=== PATIENT | female | born 1995 | race American Indian/Alaskan Native ===

== ENCOUNTER 2019-12-18 19:49 | Inpatient (IN) | payer OTHER, MEDICAID ==
[2019-12-18 20:36] LABS: Hematocrit 35.9 % (30.3-42.9); Hemoglobin 12.1 gm/dl (10.1-14.3); Mean Corpuscular HGB Conc 34 % (30-34); Mean Corpuscular Volume 90 fl (79-97); Platelet Count 207 K/mm3 (140-440); Red Cell Distribution Width 14.8 % (13.2-15.2)
[2019-12-18] MEDS ORDERED: LIDOCAINE (2%) 20 MG/1 ML VIAL 20 ML MDV INFILTRATI ONE (21:23)
[2019-12-18] MEDS ORDERED: BUTORPHANOL 2 MG/1 ML INJ IV PRN (21:23)
[2019-12-18] MEDS ORDERED: ONDANSETRON 4 MG/2 ML INJ IV PRN (21:23)
[2019-12-18] MEDS ORDERED: TERBUTALINE 1 MG/1 ML INJ SUB-Q PRN (21:23)
[2019-12-18] MEDS ORDERED: TERBUTALINE 1 MG/1 ML INJ IVP PRN (21:23)
[2019-12-18] MEDS ORDERED: NALOXONE 0.4 MG/1 ML INJ IV PRN (21:23)
[2019-12-18] MEDS ORDERED: MINERAL OIL 30 ML ORAL LIQD PO PRN (21:23)
[2019-12-18] MEDS ORDERED: ePHEDrine SULFATE 50 MG/1 ML INJ IV PRN (21:23)
[2019-12-18] MEDS ORDERED: fentaNYL 100 MCG/2 ML INJ IV PRN (21:23)
[2019-12-18] MEDS ORDERED: OXYTOCIN 20 UNIT/1000ML DRIP 20 UNITS/1,000 ML BAG IV SCH (22:00)
[2019-12-19] MEDS: OXYTOCIN DRIP 30 UNITS/500 ML BAG IV SCH ×7 (00:17→11:50)
[2019-12-19] MEDS: LACTATED RINGERS 1,000 ML IV SCH ×4 (00:17→15:04)
[2019-12-19] MEDS ORDERED: ZOLPIDEM 5 MG TAB PO PRN (00:25)
--- NOTE | 2019-12-19 08:18 | History and Physical Report ---
History of Present Illness Date of examination: 12/19/19 Date of admission: 12/18/19 21:20 Chief complaint: IOL recommneded by M History of present illness: This is a 24 yo at 39 weeks here forIOL. She is a patient of [facility] weeks. Hx of subchorionic bleeding and bleeding during . 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 HX of GBS neg. HX of EIF resolved on 11/25 PUI?: No Past History Past Medical History: no pertinent history Past Surgical History: other () Family/Genetic History: none Social history: no significant social history, single. denies: smoking, alcohol abuse, prescription drug abuse - Obstetrical History Expected Date of Delivery: 12/25/19 Actual Gestation: 39 Week(s) 1 Day(s) : 3 Para: 0 Hx # Term Pregnancies: 0 Number of Pregnancies: 0 Spontaneous Abortions: 0 Induced : 1 Number of Living Children: 0 Medications and Allergies Allergies Allergy/AdvReac Type Severity Reaction Status Date / Time No Known Allergies Allergy Verified 12/18/19 21:31 Home Medications Medication Instructions Recorded Confirmed Last Taken Type Butalb/Acetamin/Caff 50-325-40 1 each PO Q4H PRN 12/18/19 12/18/19 Unknown History [Fioricet 50-325-40] Ferrous Sulfate [Iron 325 MG] 325 mg PO DAILY 12/18/19 12/18/19 1 Day Ago Histo ry ~12/17/19 Pnv,Calcium 72/Iron,Carb/Folic 1 each PO DAILY 12/18/19 12/18/19 1 Day Ago Hist ory [ Plus Iron Tablet] ~12/17/19 valACYclovir [Valtrex] 500 mg PO ONCE 12/18/19 12/18/19 1 Day Ago History ~12/17/19 Active Meds: Active Medications Butorphanol Tartrate (Stadol) 2 mg IV Q2H PRN PRN Reason: Pain , Severe (7-10) Ephedrine Sulfate (Ephedrine Sulfate) 10 mg IV Q2M PRN PRN Reason: Hypotension Fentanyl (Sublimaze) 100 mcg IV Q2H PRN PRN Reason: Labor Pain Oxytocin/Sodium Chloride (Pitocin/Ns 20 Unit/1000ml Drip) 20 units in 1,000 mls @ 125 mls/hr IV DIRECT NADIA Oxytocin/Sodium Chloride (Pitocin/Ns 30 Unit/500ml) 30 units in 500 mls @ 1 mls/hr IV TITR NADIA; Protocol Last Admin: 12/19/19 07:58 Dose: 6 ml/hr, 6 mls/hr Documented by: Lactated Ringer's (Lactated Ringers) 1,000 mls @ 125 mls/hr IV DIRECT NADIA Last Admin: 12/19/19 07:41 Dose: 125 mls/hr Documented by: Mineral Oil (Mineral Oil) 30 ml PO QHS PRN PRN Reason: Constipation Naloxone HCl (Naloxone) 0.1 mg IV Q2MIN PRN PRN Reason: Res Rate </= 8 or 02 SAT < 92% Ondansetron HCl (Zofran) 4 mg IV Q8H PRN PRN Reason: Nausea And Vomiting Terbutaline Sulfate (Brethine) 0.25 mg SUB-Q ONCE PRN PRN Reason: Hyperstimulation/Hypertonicity Terbutaline Sulfate (Brethine) 0.25 mg IVP ONCE PRN PRN Reason: Hyperstimulation/Hypertonicity Valacyclovir HCl (Valtrex) 500 mg PO BID NADIA Zolpidem Tartrate (Ambien) 5 mg PO QHS PRN PRN Reason: Sleep Last Admin: 12/19/19 00:31 Dose: 5 mg Documented by: Review of Systems All systems: negative - Vital Signs Vital signs: Vital Signs Pulse BP 97 H 111/64 12/18/19 20:08 12/18/19 20:08 Temp Pulse Resp BP Pulse Ox 97.9 F 99 H 14 94/57 100 12/19/19 07:42 12/19/19 08:07 12/19/19 07:42 12/19/19 07:43 12/19/19 08:07 - Physical Exam Breasts: Positive: normal Cardiovascular: Regular rate, Normal S1 Lungs: Positive: Clear to auscultation, Normal air movement Abdomen: Positive: normal appearance, soft, normal bowel sounds. Negative: distention, tenderness, guarding Genitourinary (Female): Positive: normal external genitalia, normal perenium Vagina: Positive: normal moisture Uterus: Positive: normal size, normal contour Anus/Rectum: Positive: normal perianal skin Extremities: Positive: normal Deep Tendon Reflex Grade: Normal +2 - Obstetrical FHR: category 1 Cervical Dilatation: 2 Cervical Effacement Percentage: 70 station: -3 Uterine Contraction Pattern: Irregular Uterine Contraction Intensity: Mild Results Result Diagrams: 12/18/19 20:23 All other labs normal. Assessment and Plan A/P IUP 39 weeks hx of vaginal bleeding during recommended by [facility] to deliver at 39+ weeks. IOL with low dose pit GBS neg no need for IP abx expect vaginal delivery
[2019-12-19] MEDS ORDERED: valACYclovir 500 MG TAB PO SCH (10:00)
[2019-12-19] MEDS ORDERED: fentaNYL-BUPIV 2 MCG/ML-0.125% 200 MCG/100 ML BAG EPIDURAL ONE (13:51)
[2019-12-19] MEDS ORDERED: NALOXONE 2 MG/2 ML INJ IV PRN (14:25)
[2019-12-19] MEDS ORDERED: ePHEDrine SULFATE 50 MG/1 ML INJ IV PRN (14:25)
[2019-12-19] MEDS ORDERED: fentaNYL-BUPIV 2 MCG/ML-0.125% 200 MCG/100 ML BAG EPIDURAL SCH (15:00)
[2019-12-19] MEDS ORDERED: diphenhydrAMINE 25 MG CAP PO PRN (17:47)
[2019-12-19] MEDS ORDERED: ONDANSETRON 4 MG/2 ML INJ IV PRN (17:47)
[2019-12-19] MEDS ORDERED: PROMETHAZINE 25 MG TAB PO PRN (17:47)
[2019-12-19] MEDS ORDERED: MAGNESIUM HYDROXIDE (MOM) ORAL LIQD UDC PO PRN (17:47)
[2019-12-19] MEDS ORDERED: WITCH HAZEL/ GLYCERIN PAD TP PRN (17:47)
[2019-12-19] MEDS ORDERED: LANOLIN/ZINC/DIMETHICONE (LANSINOH) 7 GM TP PRN (17:47)
[2019-12-19] MEDS ORDERED: ACETAMINOPHEN 325 MG TAB PO PRN (17:47)
[2019-12-19] MEDS ORDERED: HYDROcodone/ACETAMINOPHEN 5-325 MG TAB PO PRN (17:47)
[2019-12-19] MEDS ORDERED: PROMETHAZINE 25 MG RECT SUPP PR PRN (17:47)
--- NOTE | 2019-12-19 17:47 | Procedure Note ---
OB Delivery Note - Delivery Date of Delivery: 12/19/19 Surgeon: SHEEBA KIRKPATRICK Estimated blood loss: 200cc - Vaginal Delivery presentation: vertex Delivery position: OA Intrapartum events: none Delivery induction: AROM Delivery augmentation: pitocin Delivery monitor: external FHT, external uterine Route of delivery: Delivery placenta: spontaneous Delivery cord: 3 umbilical vessels Episiotomy: none Delivery laceration: 1st degree Anesthesia: epidural Delivery comments: Patient progressed to complete complete +1 and post to deliver a live-born female with Apgars of 8 and 9 weight 2.95kg. After delivery of the head the shoulders delivered without difficulty. The cord was clamped and cut and was bulb suction. The infant was placed on the patient's abdomen. The placenta delivered spontaneously intact with a three-vessel cord. The patient sustained a right periurethral laceration left unrepaired. Estimated blood loss of 200 mL. - A at 1 minute: 8 at 5 minutes: 9 Infant Gender: Female (wt 2.95kg)
[2019-12-19] MEDS: IBUPROFEN 600 MG TAB PO SCH (22:07)
[2019-12-20] MEDS: IBUPROFEN 600 MG TAB PO SCH ×3 (04:20→17:53)
[2019-12-20 05:04] LABS: Hematocrit 31.1 % (30.3-42.9); Hemoglobin 10.4 gm/dl (10.1-14.3)
--- NOTE | 2019-12-20 08:32 | Progress Note ---
Assessment and Plan A/P PPD1 s/p routine PP care d/c home tomorrow stable CBC Subjective - Subjective Date of service: 12/20/19 Principal diagnosis: s/p Interval history: This is a 24 yo at 39 weeks here forIOL. She is a patient of [facility] weeks. Hx of subchorionic bleeding and bleeding during . 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 HX of GBS neg. HX of EIF resolved on 11/25 Patient reports: appetite normal, voiding normally, pain well controlled, flatus, ambulating normally [place]: doing well Objective - Vital Signs Latest vital signs: Vital Signs Temp Pulse Resp BP BP Pulse Ox 12/20/19 04:39 98.0 F 71 20 98/56 94 12/20/19 00:47 98.2 F 87 20 94/62 96 12/19/19 21:20 98.3 F 87 16 110/77 99 12/19/19 20:23 77 98 12/19/19 20:22 98.3 F 80 18 120/73 12/19/19 20:21 31 L 77 L 12/19/19 20:18 86 99 12/19/19 20:16 79 116/73 12/19/19 20:15 75 86 12/19/19 20:13 78 100 12/19/19 20:08 80 100 12/19/19 20:03 79 100 12/19/19 20:01 76 127/84 12/19/19 19:58 80 100 12/19/19 19:53 75 100 12/19/19 19:48 85 100 12/19/19 19:47 87 119/75 85 12/19/19 19:43 78 100 12/19/19 19:38 81 100 12/19/19 19:33 85 124/80 100 12/19/19 19:29 86 86 12/19/19 19:28 81 100 12/19/19 19:23 75 100 12/19/19 19:18 82 100 12/19/19 19:17 66 114/83 12/19/19 19:13 67 100 12/19/19 19:08 83 100 12/19/19 19:04 80 86 12/19/19 19:03 75 99 12/19/19 19:01 77 114/74 12/19/19 18:58 84 99 12/19/19 18:55 75 86 12/19/19 18:53 81 100 12/19/19 18:48 76 100 12/19/19 18:46 73 112/70 12/19/19 18:43 78 100 12/19/19 18:38 76 98 12/19/19 18:33 79 100 12/19/19 18:31 90 108/65 12/19/19 18:28 84 99 12/19/19 18:23 86 100 12/19/19 18:18 75 100 12/19/19 18:16 77 105/57 12/19/19 18:13 85 100 12/19/19 18:08 90 100 12/19/19 18:03 83 99 12/19/19 18:02 85 95/55 12/19/19 17:58 85 100 12/19/19 17:53 76 100 12/19/19 17:48 82 100 12/19/19 17:47 81 105/73 12/19/19 17:43 82 100 12/19/19 17:38 92 H 100 12/19/19 17:33 133 H 100 12/19/19 17:28 101 H 100 12/19/19 17:23 89 100 12/19/19 17:18 87 99 12/19/19 17:15 18 118/76 12/19/19 17:13 59 L 83 L 12/19/19 17:12 112 H 118/76 12/19/19 16:53 15 12/19/19 16:17 97.7 F 77 16 99/65 12/19/19 16:16 79 99/65 12/19/19 14:52 84 99/62 12/19/19 14:12 73 104/60 12/19/19 11:17 76 100 12/19/19 11:12 73 99 12/19/19 11:07 72 96 12/19/19 11:02 74 96 12/19/19 10:57 96 H 100 12/19/19 10:52 86 100 12/19/19 10:47 79 99 12/19/19 10:42 102 H 97 12/19/19 10:28 72 97 12/19/19 10:23 74 98 12/19/19 10:18 78 99 12/19/19 10:13 68 97 12/19/19 10:08 67 99 12/19/19 10:03 74 97 12/19/19 09:58 71 98 12/19/19 09:53 72 99 12/19/19 09:48 80 100 12/19/19 09:43 71 100 12/19/19 09:38 83 100 12/19/19 09:27 88 100 12/19/19 09:22 67 100 12/19/19 09:17 83 98 12/19/19 09:12 67 98 12/19/19 09:07 69 100 12/19/19 09:02 95 H 100 12/19/19 08:57 73 100 12/19/19 08:52 85 100 12/19/19 08:47 76 100 12/19/19 08:42 74 100 12/19/19 08:37 78 99 12/19/19 08:32 77 100 Intake and Output 12/19/19 12/20/19 12/20/19 23:59 07:59 15:59 Intake Total 240 Output Total 1450 Balance -1210 Intake: Oral 240 Output: Urine 1450 Indwelling Catheter 300 Void 1150 Other: Total, Intake Amount 240 Total, Output Amount 500 # Voids Void 1 Estimated Blood Loss 200 - Exam Breasts: Present: normal Cardiovascular: Present: Regular rate, Normal S1 Lungs: Present: Clear to auscultation, Normal air movement Abdomen: Present: normal appearance, soft, normal bowel sounds. Absent: distention, tenderness, guarding Uterus: Present: normal, firm, fundal height below umbilicus. Absent: bogginess, tenderness Extremities: Present: normal Deep Tendon Reflex Grade: Normal +2
[2019-12-21] MEDS: IBUPROFEN 600 MG TAB PO SCH (04:10)
--- NOTE | 2019-12-21 08:18 | Progress Note ---
Assessment and Plan A/P PPD2 s/p routine PP care d/c home today stable CBC Subjective - Subjective Date of service: 12/21/19 Principal diagnosis: s/p Interval history: This is a 24 yo at 39 weeks here forIOL. She is a patient of [facility] weeks. Hx of subchorionic bleeding and bleeding during . 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 HX of GBS neg. HX of EIF resolved on 11/25 Patient reports: appetite normal, voiding normally, pain well controlled, flatus, ambulating normally [place]: doing well Objective - Vital Signs Latest vital signs: Vital Signs Temp Pulse Resp BP BP Pulse Ox 12/21/19 00:07 97.9 F 65 18 97/54 100 12/20/19 16:10 97.8 F 65 18 104/68 98 12/20/19 12:30 97.7 F 77 18 100/75 97 12/20/19 09:01 97.3 F L 84 18 106/70 100 Intake and Output 12/20/19 12/21/19 12/21/19 23:59 07:59 15:59 Intake Total 300 220 Balance 300 220 Intake: Oral 120 Intake, Free Water 180 220 Other: Total, Intake Amount 120 # Voids Void 1 1 - Exam Breasts: Present: normal Cardiovascular: Present: Regular rate, Normal S1 Lungs: Present: Clear to auscultation, Normal air movement Abdomen: Present: normal appearance, soft, normal bowel sounds. Absent: distention, tenderness, guarding Uterus: Present: normal, firm, fundal height below umbilicus. Absent: bogginess, tenderness Extremities: Present: normal Deep Tendon Reflex Grade: Normal +2 Incision: Present: normal
--- NOTE | 2019-12-21 08:19 | Discharge Summary ---
Providers - Providers Date of Admission: 12/18/19 21:20 Date of discharge: 12/21/19 Attending physician: MALOU LOPEZ MD Primary care physician: MALOU LOPEZ MD Hospitalization Reason for admission: IUP at term Delivery: Episiotomy: none Laceration: none Incision: normal Other procedures: none complications: none Discharge diagnosis: IUP at term delivered baby: female Hospital course: routine PP viable female Condition at discharge: Good Disposition: DC-30 STILL A PATIENT Plan - Discharge Medications Prescriptions: Ibuprofen [Motrin] 600 mg PO Q8H PRN #30 tablet PRN Reason: Pain Ibuprofen [Motrin] 600 mg PO Q8H PRN #30 tablet PRN Reason: Pain oxyCODONE /ACETAMINOPHEN [Percocet 5/325] 1 tab PO Q6HR PRN #30 tablet PRN Reason: Pain - Provider Discharge Summary Additional instructions: [] Smoking cessation referral if applicable(refer to patient education folder for contact #) [] Refer to [facility] Booklet Call your doctor immediately for: * Fever > 100.5 * Heavy vaginal bleeding ( >1 pad per hour) * Severe persistent headache * Shortness of breath * Reddened, hot, painful area to leg or breast * Drainage or odor from incision. * Keep incision clean and dry at all times and follow doctor's instructions regarding bathing/showering - Follow up plan Follow up: MALOU LOPEZ MD [Primary Care Provider] - 6 Weeks Forms: [facility] Discharge Summary
[2019-12-21 12:27] VITALS: BP 106/74
== END 2019-12-21 12:10 | disposition home or self-care (01) | DRG 807 ==
LOC: TRG 19:49 → LD 20:00 → UNDOADMIN 20:00 → LD 21:20 → OB 12-19 21:25
PROVIDERS: ADMIT Obstetrics & Gynecology; ATTEND Obstetrics & Gynecology
PROC: 10E0XZZ Delivery of Products of Conception, External Approach (ICD-10-PCS; principal; 2019-12-19)
PROC: 10907ZC Drainage of Amniotic Fluid, Therapeutic from Products of Conception, Via Natural or Artificial Opening (ICD-10-PCS; 2019-12-19)
PROC: 0HQ9XZZ Repair Perineum Skin, External Approach (ICD-10-PCS; 2019-12-19)
PROC: 3E0R3BZ Introduction of Anesthetic Agent into Spinal Canal, Percutaneous Approach (ICD-10-PCS; 2019-12-19)
PROC: 00HU33Z Insertion of Infusion Device into Spinal Canal, Percutaneous Approach (ICD-10-PCS; 2019-12-19)
DX: O98.52 Other viral diseases complicating childbirth (principal); Z37.0 Single live birth; B00.9 Herpesviral infection, unspecified; O70.0 First degree perineal laceration during delivery; Z3A.39 39 weeks gestation of pregnancy; Z79.899 Other long term (current) drug therapy
CPT/HCPCS: 36415; 85014; 85018; 85027; 86592; 86850; 86900; 86901; G0378; A6250; J0595; J2590; J7120

== ENCOUNTER 2021-06-23 12:55 | Outpatient (CLI) | payer MEDICAID, OTHER ==
[2021-06-23 17:24] VITALS: BP 100/68
--- NOTE | 2021-06-23 18:57 | Ultrasound Report ---
ULTRASOUND OBSTETRIC LIMITED INDICATION / CLINICAL INFORMATION: RAMAKRISHNA, ROM PLUS NEGATIVE, LEAKING FLUID. TECHNIQUE: Transabdominal ultrasound imaging. COMPARISON: None available. FINDINGS: HEART RATE (beats per minute): 134 AMNIOTIC FLUID INDEX (cm) = 11.5 PRESENTATION: Cephalic. ADDITIONAL FINDINGS: None. IMPRESSION: Normal RAMAKRISHNA Signer Name: Ozzie Plunkett Jr, MD Signed: 06/23/2021 6:53 PM Workstation Name: [id number]
== END 2021-06-23 18:24 | disposition home or self-care (01) ==
LOC: TRG 12:55 → APU 12:58 → TRG 18:24
PROVIDERS: ATTEND Obstetrics & Gynecology
DX: Z34.93 Encounter for supervision of normal pregnancy, unspecified, third trimester (principal); Z3A.39 39 weeks gestation of pregnancy
CPT/HCPCS: 36415; 59025; 76815; 84112

== ENCOUNTER 2021-06-26 17:02 | Inpatient (IN) | payer MEDICAID ==
[2021-06-26] MEDS ORDERED: METHYLERGONOVINE MALEATE 0.2 MG/ML VIAL IM PRN (20:11)
[2021-06-26] MEDS ORDERED: ONDANSETRON 4 MG/2 ML INJ IV PRN (20:11)
[2021-06-26] MEDS ORDERED: NalbUPHINE 10 MG/1 ML INJ IV PRN (20:11)
[2021-06-26] MEDS ORDERED: ACETAMINOPHEN 325 MG TAB PO PRN (20:11)
[2021-06-26] MEDS ORDERED: MINERAL OIL 30 ML ORAL LIQD PO PRN (20:11)
[2021-06-26] MEDS ORDERED: CARBOPROST TROMETHAMINE 250 MCG/1 ML INJ IM PRN (20:11)
[2021-06-26] MEDS ORDERED: fentaNYL 100 MCG/2 ML INJ IV PRN (20:11)
[2021-06-26] MEDS ORDERED: OXYTOCIN 10 UNIT/1 ML INJ IM PRN (20:11)
[2021-06-26] MEDS ORDERED: ePHEDrine SULFATE 50 MG/1 ML INJ IV PRN (20:11)
[2021-06-26] MEDS ORDERED: miSOPROStol 200 MCG TAB PR PRN (20:11)
[2021-06-26] MEDS ORDERED: LOPERAMIDE 2 MG CAP PO PRN (20:11)
[2021-06-26] MEDS ORDERED: NALOXONE 0.4 MG/1 ML INJ IV PRN (20:11)
[2021-06-26] MEDS ORDERED: TERBUTALINE 1 MG/1 ML INJ SUB-Q PRN (20:11)
[2021-06-26] MEDS ORDERED: LIDOCAINE (2%) 20 MG/1 ML VIAL 20 ML MDV INFILTRATI ONE (20:11)
--- NOTE | 2021-06-26 20:53 | Ultrasound Report ---
ULTRASOUND BIOPHYSICAL PROFILE INDICATION / CLINICAL INFORMATION: Evaluate well-being. COMPARISON: Limited obstetrical ultrasound, 06/23/2021 FINDINGS: BREATHING MOVEMENT = 2 GROSS BODY MOVEMENT = 2 TONE = 2 QUALITATIVE AMNIOTIC FLUID VOLUME = 2 TOTAL BIOPHYSICAL SCORE = 04/12 PRESENTATION: Cephalic. HEART RATE (beats per minute): 124 IMPRESSION: 1. biophysical profile = 04/12 Signer Name: Cassy Vega MD Signed: 06/26/2021 8:49 PM Workstation Name: [email or web address]
[2021-06-26] MEDS ORDERED: OXYTOCIN DRIP 30 UNITS/500 ML BAG IV SCH (21:00)
[2021-06-26] MEDS ORDERED: DINOPROSTONE 10 MG VAG SUPP VG ONE (21:11)
[2021-06-26 21:27] LABS: Hematocrit 37.1 % (30.3-42.9); Hemoglobin 12.4 gm/dl (10.1-14.3); Mean Corpuscular HGB Conc 33 % (30-34); Mean Corpuscular Volume 89 fl (79-97); Platelet Count 153 K/mm3 (140-440); Red Blood Count 4.18 M/mm3 (3.65-5.03); Red Cell Distribution Width 14.5 % (13.2-15.2)
[2021-06-26] MEDS ORDERED: ZOLPIDEM 5 MG TAB PO ONE (22:00)
[2021-06-26] MEDS ORDERED: miSOPROStol 25 MCG TAB VG ONE (22:00)
[2021-06-26] MEDS: LACTATED RINGERS 1,000 ML IV SCH (22:15)
[2021-06-27] MEDS ORDERED: ZOLPIDEM 5 MG TAB ONE (00:09)
[2021-06-27] MEDS: LACTATED RINGERS 1,000 ML IV SCH (00:12)
[2021-06-27] MEDS ORDERED: ZOLPIDEM 5 MG TAB PO ONE (00:15)
[2021-06-27] MEDS ORDERED: ePHEDrine SULFATE 50 MG/1 ML INJ IV PRN (01:48)
[2021-06-27] MEDS ORDERED: NALOXONE 2 MG/2 ML INJ IV PRN (01:48)
--- NOTE | 2021-06-27 01:52 | Anesthesia Consultation ---
Anesthesia Consult and Med Hx Date of service: 06/27/21 - Airway Anesthetic Teeth Evaluation: Poor ROM Head & Neck: Adequate Mental/Hyoid Distance: Adequate Mallampati Class: Class II Intubation Access Assessment: Probably Good - Pulmonary Exam CTA: Yes - Cardiac Exam Cardiac Exam: RRR - Pre-Operative Health Status ASA Pre-Surgery Classification: ASA2 Proposed Anesthetic Plan: Epidural - Pulmonary Hx Smoking: Yes (Former Smoker) Hx Asthma: No Hx Respiratory Symptoms: No SOB: No COPD: No Home Oxygen Therapy: No Hx Pneumonia: No Hx Sleep Apnea: No - Cardiovascular System Hx Hypertension: No Hx Coronary Artery Disease: No Hx Heart Attack/AMI: No Hx Angina: No Hx Percutaneous Transluminal Coronary Angioplasty (PTCA): No Hx Cardia Arrhythmia: No Hx Pacemaker: No Hx Internal Defibrillator: No Hx Valvular Heart Disease: No Hx Heart Murmur: No Hx Peripheral Vascular Disease: No - Central Nervous System Hx Neuromuscular Disorder: No Hx Seizures: No CVA: No Hx Back Pain: Yes Hx Psychiatric Problems: No - Gastrointestinal Hx Ulcer: No Hx Gastroesophageal Reflux Disease: Yes - Endocrine Hx Renal Disease: No Hx End Stage Renal Disease: No Hx Cirrhosis: No Hx Liver Disease: No Hx Insulin Dependent Diabetes: No Hx Non-Insulin Dependent Diabetes: No Hx Thyroid Disease: No Hx Hypothyroidism: No Hx Hyperthyroidism: No - Hematic Hx Anemia: Yes (09/24) Hx Sickle Cell Disease: No - Other Systems Hx Alcohol Use: No Hx Substance Use: No Hx Cancer: No Hx Obesity: Yes
[2021-06-27] MEDS ORDERED: fentaNYL-BUPIV 2 MCG/ML-0.125% 200 MCG/100 ML BAG EPIDURAL SCH (02:00)
--- NOTE | 2021-06-27 03:05 | History and Physical Report ---
History of Present Illness Date of examination: 06/27/21 Date of admission: 06/26/21 20:12 Chief complaint: Contractions History of present illness: 26-year-old at 40+0 weeks who presents with regular uterine contractions and the complaint of pelvic pressure. The patient presumed that her water had broken. A biophysical profile was performed that demonstrated evidence of oligohydramnios. The patient was admitted for induction of labor. The patient initiated care in the first trimester. Her course is complicated by borderline thrombocytopenia. The patient is GBS negative Past History Past Medical History: migraines Past Surgical History: no surgical history Social history: single - Obstetrical History Expected Date of Delivery: 06/27/21 Actual Gestation: 40 Week(s) 0 Day(s) : 4 Para: 1 Hx # Term Pregnancies: 1 Number of Pregnancies: 0 Spontaneous Abortions: 1 Induced : 1 Number of Living Children: 1 Medications and Allergies Allergies Allergy/AdvReac Type Severity Reaction Status Date / Time No Known Allergies Allergy Verified 12/18/19 21:31 Home Medications Medication Instructions Recorded Confirmed Last Taken Type Butalb/Acetamin/Caff 50-325-40 1 each PO Q4H PRN 12/18/19 12/18/19 Unknown History [Fioricet 50-325-40] Ferrous Sulfate [Iron 325 MG] 325 mg PO DAILY 12/18/19 12/18/19 1 Day Ago History ~12/17/19 Pnv,Calcium 72/Iron,Carb/Folic 1 each PO DAILY 12/18/19 12/18/19 1 Day Ago History [ Plus Iron Tablet] ~12/17/19 valACYclovir [Valtrex] 500 mg PO ONCE 12/18/19 12/18/19 1 Day Ago History ~12/17/19 Ibuprofen [Motrin] 600 mg PO Q8H PRN #30 tablet 12/20/19 Unknown Rx Ibuprofen [Motrin] 600 mg PO Q8H PRN #30 tablet 12/21/19 Unknown Rx oxyCODONE /ACETAMINOPHEN [Percocet 1 tab PO Q6HR PRN #30 tablet 12/21/19 Unknown Rx 5/325] Active Meds: Active Medications Acetaminophen (Acetaminophen 325 Mg Tab) 650 mg PO Q4H PRN PRN Reason: Pain, Mild (1-3) Carboprost Tromethamine (Carboprost Tromethamine 250 Mcg/1 Ml Inj) 250 mcg IM ONCE PRN PRN Reason: Uterine Bleeding Ephedrine Sulfate (Ephedrine Sulfate 50 Mg/1 Ml Inj) 10 mg IV Q2M PRN PRN Reason: Hypotension Fentanyl (Fentanyl 100 Mcg/2 Ml Inj) 100 mcg IV Q2H PRN PRN Reason: Pain,Severe (7-10) LABOR PAIN Last Admin: 06/27/21 01:02 Dose: 100 mcg Documented by: Oxytocin/Sodium Chloride (Pitocin/Ns 30 Unit/500ml) 30 units in 500 mls @ 2 mls/hr IV TITR NADIA; Protocol Lactated Ringer's (Lactated Ringers) 1,000 mls @ 125 mls/hr IV DIRECT NADIA Last Admin: 06/27/21 00:12 Dose: 125 mls/hr Documented by: Fentanyl/Bupivacaine/Sodium Chlor (Fentanyl-Bupiv 2 Mcg/Ml-0.125%) 200 mcg in 100 mls @ 12 mls/hr EPIDURAL TITR NADIA; Protocol Loperamide HCl (Loperamide 2 Mg Cap) 2 mg PO ONCE PRN PRN Reason: give with Hemabate Methylergonovine Maleate (Methylergonovine Maleate 0.2 Mg/Ml Vial) 0.2 mg IM ONCE PRN PRN Reason: Uterine Bleeding Mineral Oil (Mineral Oil 30 Ml Oral Liqd) 30 ml PO QHS PRN PRN Reason: Constipation Misoprostol (Misoprostol 200 Mcg Tab) 800 mcg ND ONCE PRN PRN Reason: Uterine Bleeding Nalbuphine HCl (Nalbuphine 10 Mg/1 Ml Inj) 10 mg IV Q2H PRN PRN Reason: Pain, Moderate (4-6) Naloxone HCl (Naloxone 0.4 Mg/1 Ml Inj) 0.1 mg IV Q2MIN PRN PRN Reason: Res Rate </= 8 or 02 SAT < 92% Naloxone HCl (Naloxone 2 Mg/2 Ml Inj) 0.2 mg IV Q5M PRN PRN Reason: Respiratory sedation Ondansetron HCl (Ondansetron 4 Mg/2 Ml Inj) 4 mg IV Q8H PRN PRN Reason: Nausea And Vomiting Oxytocin (Oxytocin 10 Unit/1 Ml Inj) 10 unit IM ONCE PRN PRN Reason: Uterine Bleeding Terbutaline Sulfate (Terbutaline 1 Mg/1 Ml Inj) 0.25 mg SUB-Q ONCE PRN PRN Reason: Hyperstimulation/Hypertonicity Review of Systems All systems: negative Genitourinary: pelvic pain, contractions - Vital Signs Vital signs: Vital Signs Pulse BP Pulse Ox 87 100/64 98 06/26/21 18:07 06/26/21 18:07 06/26/21 18:07 Temp Pulse Resp BP Pulse Ox 97.7 F 71 20 127/67 99 06/27/21 02:00 06/27/21 02:58 06/26/21 18:09 06/27/21 02:29 06/27/21 02:58 - Physical Exam Breasts: Positive: deferred Cardiovascular: Regular rate Lungs: Positive: Clear to auscultation Abdomen: Positive: normal appearance Results Result Diagrams: 06/26/21 21:08 All other labs normal. Assessment and Plan - Patient Problems (1) Oligohydramnios Current Visit: Yes Status: Acute Plan to address problem: Admit to labor and delivery for induction
--- NOTE | 2021-06-27 03:09 | Procedure Note ---
OB Delivery Note - Delivery Date of Delivery: 06/27/21 Surgeon: SHEEBA KIRKPATRICK Estimated blood loss: 200cc - Vaginal Delivery presentation: vertex Delivery position: OA Intrapartum events: other(please specify) (Oligohydramnios) Delivery induction: cervidil Delivery monitor: external FHT, external uterine Route of delivery: Delivery placenta: spontaneous Delivery cord: 3 umbilical vessels Episiotomy: none Delivery laceration: none Anesthesia: none Delivery comments: The patient had a spontaneous vaginal delivery of a liveborn male with Apgars of 8 and 9 weight 7 pounds 1 ounce. The patient rapidly progressed from closed cervical dilatation to delivery with the use of Cervidil. The infant delivered without difficulty. The placenta delivered spontaneously intact with a three-vessel cord. No lacerations were noted. Estimated blood loss of 200 mL - Infant A at 1 minute: 8 at 5 minutes: 9 Gender: Male (Weight 7 pounds 1 ounce)
[2021-06-27] MEDS ORDERED: MAGNESIUM HYDROXIDE (MOM) ORAL LIQD UDC PO PRN (03:10)
[2021-06-27] MEDS ORDERED: PROMETHAZINE 25 MG TAB PO PRN (03:10)
[2021-06-27] MEDS ORDERED: ONDANSETRON 4 MG/2 ML INJ IV PRN (03:10)
[2021-06-27] MEDS ORDERED: WITCH HAZEL/ GLYCERIN PAD TP PRN (03:10)
[2021-06-27] MEDS ORDERED: LANOLIN/ZINC/DIMETHICONE (LANSINOH) 7 GM TP PRN (03:10)
[2021-06-27] MEDS ORDERED: diphenhydrAMINE 25 MG CAP PO PRN (03:10)
[2021-06-27] MEDS ORDERED: PROMETHAZINE 25 MG RECT SUPP PR PRN (03:10)
[2021-06-27] MEDS: IBUPROFEN 600 MG TAB PO SCH ×3 (03:35→23:03)
[2021-06-27] MEDS: HYDROcodone/ACETAMINOPHEN 5-325 MG TAB PO PRN (09:13)
[2021-06-27 16:28] LABS: Hematocrit 33.4 % (30.3-42.9); Hemoglobin 11.1 gm/dl (10.1-14.3)
[2021-06-28] MEDS: HYDROcodone/ACETAMINOPHEN 5-325 MG TAB PO PRN ×2 (01:44→08:36)
[2021-06-28] MEDS: IBUPROFEN 600 MG TAB PO SCH (05:56)
--- NOTE | 2021-06-28 10:59 | Progress Note ---
Assessment and Plan - Patient Problems (1) Oligohydramnios Current Visit: Yes Status: Acute Plan to address problem: Patient doing well Discharge home Subjective - Subjective Date of service: 06/28/21 Interval history: Patient without any significant complaints. Her pain is well controlled. She is tolerating regular diet Patient reports: appetite normal, voiding normally, pain well controlled [place]: doing well Objective - Vital Signs Latest vital signs: Vital Signs Temp Pulse Resp BP Pulse Ox Pulse Ox 06/28/21 08:36 18 06/28/21 08:09 98.1 F 55 L 18 100/64 99 06/28/21 07:30 100 06/28/21 06:56 18 06/28/21 05:56 18 06/28/21 02:44 18 06/28/21 01:44 20 06/28/21 01:42 98.5 F 64 16 92/58 97 06/28/21 00:03 18 06/27/21 23:03 18 06/27/21 20:50 100 06/27/21 16:18 98.4 F 77 18 95/64 99 Intake and Output 06/27/21 06/28/21 06/28/21 22:59 06:59 14:59 Intake Total 121 Output Total 700 Balance -700 121 Intake: Intake, Free Water 121 Output: Urine 700 Void 700 Other: Total, Output Amount 700 # Voids Void 1 1
--- NOTE | 2021-06-28 10:59 | Discharge Summary ---
Providers - Providers Date of Admission: 06/26/21 20:12 Date of discharge: 06/28/21 Attending physician: SHEEBA KIRKPATRICK Primary care physician: SHEEBA KIRKPATRICK Hospitalization Reason for admission: induction of labor Delivery: Discharge diagnosis: IUP at term delivered Hospital course: Patient admitted for induction secondary to oligohydramnios. She had a spontaneous vaginal delivery. course was uneventful. Condition at discharge: Good Disposition: 01 HOME / SELF CARE / HOMELESS - Discharge Diagnoses (1) Oligohydramnios Status: Acute Plan - Discharge Medications Prescriptions: Ibuprofen [Motrin] 800 mg PO Q8HR PRN #30 tablet PRN Reason: Pain , Severe (7-10) HYDROcodone/APAP 5-325 [[place] 5/325] 1 each PO Q6HR PRN #15 tablet PRN Reason: Pain - Provider Discharge Summary Activity: no sex for 6 weeks, no heavy lifting 4 weeks, no strenuous exercise Diet: routine Instructions: routine Additional instructions: [] Smoking cessation referral if applicable(refer to patient education folder for contact #) [] Refer to [facility] Booklet Call your doctor immediately for: * Fever > 100.5 * Heavy vaginal bleeding ( >1 pad per hour) * Severe persistent headache * Shortness of breath * Reddened, hot, painful area to leg or breast * Schedule visit in 4 weeks - Follow up plan
[2021-06-28 13:07] VITALS: BP 93/67
--- NOTE | 2021-06-29 06:54 | Ultrasound Report ---
Limited OB ultrasound INDICATION: well-being FINDINGS: Live intrauterine in cephalic position. heart rate 120 bpm. Signer Name: Jeramy Palafox MD Signed: 06/29/2021 6:50 AM Workstation Name: [email or web address]
== END 2021-06-28 13:00 | disposition home or self-care (01) | DRG 775 ==
LOC: TRG 17:02 → APU 17:04 → TRG 20:11 → LD 20:12 → OB 06-27 04:41
PROVIDERS: ADMIT Obstetrics & Gynecology; ATTEND Obstetrics & Gynecology
PROC: 10E0XZZ Delivery of Products of Conception, External Approach (ICD-10-PCS; principal; 2021-06-27)
PROC: 3E0P7VZ Introduction of Hormone into Female Reproductive, Via Natural or Artificial Opening (ICD-10-PCS; 2021-06-27)
DX: O41.03X0 Oligohydramnios, third trimester, not applicable or unspecified (principal); Z3A.40 40 weeks gestation of pregnancy; Z37.0 Single live birth; Z20.822 Contact with and (suspected) exposure to COVID-19; Z87.891 Personal history of nicotine dependence; O99.62 Diseases of the digestive system complicating childbirth; O99.354 Diseases of the nervous system complicating childbirth; G43.909 Migraine, unspecified, not intractable, without status migrainosus
CPT/HCPCS: 36415; 59200; 76815; 76819; 85014; 85018; 85027; 86850; 86900; 86901; G0378; J3010; J7120; U0003